=== PATIENT | female | born 1980 | race Caucasian/White ===

== ENCOUNTER 2017-07-19 09:50 | Emergency (ER) | payer MEDICAID ==
[~2017-07-19] VITALS: Ht 152.4 cm; Wt 85.0 kg
[~2017-07-19 09:50] MED LIST: ACET500C5 PO; PREN1TAB12 PO
[2017-07-19 09:56] VITALS: Ht 152.4 cm; Wt 85.0 kg
[2017-07-19] MEDS ORDERED: IBUPROFEN 600 MG TAB PO ONE (11:00)
--- NOTE | 2017-07-19 12:12 | ERD ---
ER Documentation Chief Complaint Chief Complaint sudden onset right knee pain radiating up leg x1mth HPI 36-year-old female complaining of right knee pain 1 month. Patient stated the pain had a sudden onset, she does not remember any trauma to the knee. Stated that she has been walking a lot around the time of the onset of the knee pain. Patient reports difficulty with walking, standing, and bending the knees. She took Tylenol at home for pain without much relief. Patient reports the pain in the right knee has gotten worse over time, she now has pain in her right upper back, and right arm. He does not have a PCP. Denies fever or chills. Denies saddle paresthesia. Denies bowel bladder dysfunction. Denies prior medical history. ROS All systems reviewed and are negative except as per history of present illness. Medications Home Meds Active Scripts Ibuprofen* (Motrin*) 600 Mg Tab, 600 MG PO Q6H Y for PAIN AND OR ELEVATED TEMP, #30 TAB Prov:DEANNE WALKER ROUTE CLERK 07/19/17 Acetaminophen* (Tylophen*) 500 Mg Capsule, 1 CAP PO Q6H Y for PAIN AND OR ELEVATED TEMP, #20 CAP Prov:YESSY CARO ROUTE CLERK 05/08/15 Reported Medications Vit/Fe Fumarate/Fa ( 1-1 Tablet) 1 Tab Tablet, 1 TAB PO DAILY 07/11/12 Allergies Allergies: Coded Allergies: No Known Drug Allergies (Verified Allergy, Unknown, 05/07/15) PMhx/Soc History of Surgery: Yes (c section) Hx Alcohol Use: No Hx Substance Use: No Hx Tobacco Use: No Smoking Status: Never smoker Physical Exam Vitals Vital Signs Date Time Temp Pulse Resp B/P Pulse Ox O2 Delivery O2 Flow Rate FiO2 07/19/17 13:49 85.0 65 18 122/58 100 Room Air 07/19/17 09:56 85.0 76 18 118/56 100 Physical Exam General: Well-developed, obese, conscious and coherent, in no distress Skin: Warm and dry without rash, good texture and turgor Head: Normocephalic without evidence of trauma Eyes: Sclera and conjunctivae normal; pupils equal, round, and reactive to light; extraocular movements are intact Chest: Normal AP diameter. Good expansion without retractions. Nontender. Lungs are clear to auscultate bilaterally with good tidal volume Heart: Regular rate and rhythm. No murmur, rub, or gallops heard Back: Without spinal or CVA tenderness. Muscle spasm in the right lower lumbar region. Pelvis: Nontender to palpation and stable to compression Extremities: Walking with antalgic gait. Right knee normal to inspection, infrapatellar tenderness to palpation. Full passive range of motion. Lateral upper extremity full range of motion. Good strength bilaterally upper and lower extremities.. No clubbing, cyanosis, or edema. Peripheral pulses are intact. Sensation intact. Neuro: Alert and oriented 4, GCS 15. Cranial nerves grossly intact. Motor and sensory exams nonfocal. Moves all extremities. Speech clear. Results 24 hrs Current Medications Medications (Trade) Dose Ordered Sig/Veronica Route PRN Reason Start Time Stop Time Status Last Admin Dose Admin Ibuprofen (Motrin) 600 mg ONCE ONCE PO 07/19/17 11:00 07/19/17 11:01 DC 07/19/17 11:06 Procedures/MDM Obese 36-year-old female complaining of right knee pain 1 month. X-ray is negative for fractures or dislocations. The area of injury was immobilized with an Mike wrap. Patient was noted to be comfortable and neurovascularly intact both before and after the immobilization. Suspect patient is knee pain is due to tendinitis. I doubt septic joint or gout. She also complaining of right lower back pain. Patient does not have any midline spinal tenderness. I doubt spinal fracture, subluxation, or disc herniation. I doubt spinal epidural abscess, cauda equina syndrome. Patient does have muscle spasm on the right lumbar region, likely secondary to her gait. Patient appears well, stable for discharge and outpatient management. Medical decision making shared with patient and family. Education provided to patient and family. Patient and family expressed understanding of the plan. Medications on discharge: Ibuprofen. Follow-up: Primary care provider in 2-3 days or return to ED if worse. Disclaimer: Inadvertent spelling and grammatical errors are likely due to EHR/ dictation software use and do not reflect on the overall quality of patient care. Also, please note that the electronic time recorded on this note does not necessarily reflect the actual time of the patient encounter. Departure Diagnosis: Primary Impression: Knee pain Chronicity: acute Laterality: right Qualified Code: M25.561 - Acute pain of right knee Condition: Stable DEANNE WALKER NP Jul 19, 2017 12:12
[2017-07-19] MEDS ORDERED: IBUP-1542 PO (12:59)
--- NOTE | 2017-07-19 13:27 | RADRPT ---
PROCEDURE: XR Knee. CLINICAL INDICATION: Knee pain TECHNIQUE: AP, lateral, and oblique views of the right knee are available for review. COMPARISON: None available FINDINGS: The osseous structures, articular spaces, and surrounding soft tissues of the right knee are all unr emarkable. No acute fracture or dislocation is seen. No radiopaque foreign body is identified. Ali gnment is anatomic. There is no significant joint effusion. IMPRESSION: 1. Unremarkable right knee x-ray series. 2. No acute fracture or dislocation is seen. RPTAT: GG .Deny Plummer MD, MD Date Time Electronically viewed and signed by .Deny Plummer MD, MD on 07/19/2017 13:27 .L/
[2017-07-19 13:49] VITALS: BP 122/58; PULSE 65; RESP 18; TEMP 85
== END 2017-07-19 13:45 | disposition home or self-care (01) ==
LOC: FTE 09:50
DX: M25.561 Pain in right knee (principal)
CPT/HCPCS: 73562; Z7502; Z7610

== ENCOUNTER 2018-05-04 18:43 | Emergency (ER) | END 2018-05-04 21:35 | disposition home or self-care (01) ==

== ENCOUNTER 2018-07-14 12:19 | Emergency (ER) | END 2018-07-14 16:05 | disposition home or self-care (01) ==